=== PATIENT | female | born 1960 | race Caucasian/White ===

== ENCOUNTER 2021-02-14 15:37 | Outpatient (RCR) | payer OTHER, SELFPAY ==
[2021-02-14] MEDS: COVID-19 VACC, MRNA(PFIZER)/PF 30 MCG/0.3 ML SYRINGE IM (08:13)
[2021-03-07] MEDS: COVID-19 VACC, MRNA(PFIZER)/PF 30 MCG/0.3 ML SYRINGE IM (06:49)
== END 2021-02-14 23:59 ==
LOC: IMMUN 15:37
PROVIDERS: PCP Nurse Practitioner Family; Visit Provider Family Medicine
DX: Z23 Encounter for immunization (principal)
CPT/HCPCS: 0001A; 0002A; 91300

== ENCOUNTER → 2021-07-18 06:18 | Outpatient (CLI) | payer OTHER, SELFPAY ==
--- NOTE | 2021-07-18 06:39 | MRI_ITS ---
ACR Level 3 findings have been noted. An addendum which confirms receipt of the report will follow. STUDY: MRI RIGHT SHOULDER REASON FOR EXAM: Anterior right shoulder pain for 3 months. TECHNIQUE: Standardized fat and water weighted pulse sequences were obtained in all 3 orthogonal planes. COMPARISON: None. FINDINGS: There is supraspinatus tendinosis and a small linear intermediate grade partial-thickness tear of the bursal surface of the distal supraspinatus tendon at the greater tuberosity insertion (T2 coronal image 10). There is a small full-thickness tear of the anterior infraspinatus tendon near the musculotendinous junction (T2 coronal images 12, 13; T2 sagittal image 15) measuring 0.7 x 0.5 cm (length x width). Normal subscapularis tendon. Normal teres minor tendon. Normal supraspinatus muscle. Normal infraspinatus muscle. Normal subscapularis muscle. Normal teres minor muscle. Normal glenohumeral articulation. There is a chondroid series tumor in the proximal humeral diametaphysis measuring approximately 4 cm in length (T2 sagittal images 13-18) without adjacent bone edema or cortical breakthrough although there is endosteal scalloping (T2 axial images 14-16). Normal biceps labral complex. Normal intracapsular long biceps tendon. Normal labrum. Normal capsulo- ligamentous complex. There is acromioclavicular arthrosis with mild hypertrophic changes effacing the subacromial fat (T2 sagittal image 12). There is a Type II morphology (curved), with a neutral orientation. There is a trace of subacromial-subdeltoid bursal fluid. Normal visualized coracohumeral and coracoacromial ligaments. Normal deltoid muscle. Normal trapezius muscle. MRI/Upper Ext Joint Only(Routine) IMPRESSION: Small full-thickness tear of the infraspinatus tendon. Small partial-thickness tear and tendinosis of the supraspinatus tendon. Acromioclavicular arthrosis. 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 Electronically Signed: Vick Roy MD at 8:31 EDT Tel , Service support ,
== END ==
PROVIDERS: PCP Nurse Practitioner Family
DX: S46.001A Unspecified injury of muscle(s) and tendon(s) of the rotator cuff of right shoulder, initial encounter (principal)
CPT/HCPCS: 73221

== ENCOUNTER → 2023-10-04 | Outpatient (CLI) | payer OTHER, SELFPAY ==
--- NOTE | 2023-10-04 10:00 | RAD_ITS ---
STUDY: X-RAY - ESOPHAGUS (BARIUM SWALLOW) WITH FLUOROSCOPY REASON FOR EXAM: Female, 63 years old. Dysphagia. TECHNIQUE: 16 view(s) of the esophagus were obtained following swallowing of barium. FLUOROSCOPY TIME (if supplied): (33 seconds) minutes/seconds COMPARISON: None. FINDINGS: There is no demonstrated esophageal foreign body. There is no demonstrated stricture or mucosal abnormality. Small hiatal hernia without gastroesophageal reflux. Weblike stenosis at the gastroesophageal junction with trapping of the 12 mm tablet of barium at that site. Endoscopic correlation recommended. Normal visualized aortic arch and descending thoracic aorta. Normal visualized pulmonary parenchyma. Normal visualized osseous structures of the thorax. RAD/Esophagus Dual Contrast IMPRESSION: Small hiatal hernia without ESOPHAGEAL reflux. Weblike stenosis at the gastroesophageal junction with trapping of the 12 mm tablet of barium at that site. Endoscopic correlation recommended. Electronically Signed: Checo Hargrove MD at 14:48 EST ,
== END | disposition home or self-care (01) ==
LOC: RAD 09:44
PROVIDERS: PCP Nurse Practitioner; Referring Provider Otolaryngology; Visit Provider Otolaryngology
DX: R13.13 Dysphagia, pharyngeal phase (principal)
CPT/HCPCS: 74220; 74221

== ENCOUNTER 2025-03-26 08:05 | Day surgery (SDC) | payer OTHER, SELFPAY ==
[2025-03-26] VITALS (10 sets, daily range): BP systolic 84–159; BP diastolic 55–121; PULSE 66–82; RESP 14–16; TEMP 35.8–36.6; O2SAT 94–100; BMI 34.8
[2025-03-26] MEDS: Lactated Ringers 1,000 ML 15 ML IV (08:45)
--- NOTE | 2025-03-26 08:47 | PRE.ANES_ITS ---
ASA Classification* ASA Classification ASA Classification: 2 Assessment & Plan Anesthesia* Anesthesia Assessment Anesthesia Assessment: Discussed sedation and/or anesthesia options, risks, benefits, and alternatives with patient/parents/legal guardian/POA. Questions invited. The patient/parents/legal guardian/POA seems to understand and agrees to proceed with anesthesia plan. Reviewed the physical assessment, medical history, allergy history and patient home medications list prior to surgery/procedure/anesthetic and documented any changes. Performed airway and anesthesia risk assessments. 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 When Was Last Pacemaker Check QUESTION #4 FULL TEXT: You/Your Family Experience fever (hyperthermia) with Anesthesia Last Oral Intake Last Oral intake: Last Oral Intake NPO since 04:00 03/26/25 08:28 Meds taken in AM with sips of No 03/26/25 08:28 water? Meds patient instructed to take am of surgery PONV PONV - licensing court magistrate: PONV - licensing court magistrate Female Yes 03/21/25 15:58 HX of Motion Sickness No 03/21/25 15:58 HX of N/V After Surgery No 03/21/25 15:58 Non-Smoker Yes 03/21/25 15:58 Duration of Surgery greater No 03/21/25 15:58 than 60 minutes Number of Risk Factors 2 03/21/25 15:58 PONV Score Moderate Risk 03/21/25 15:58 Height & Weight Height & Weight: Anesthesia: Height & Weight Height 5 ft 3 in 03/26/25 08:28 Weight: 89.2 kg 03/26/25 08:28 Body Mass Index (BMI) 34.8 03/26/25 08:28 Respiratory Assessment Respiratory Assessment - licensing court magistrate: Respiratory Tract Infection Hx - licensing court magistrate Hx Respiratory Tract Infection No 03/21/25 15:58 STOP Sleep Apnea STOP Sleep Apnea - licensing court magistrate: STOP Sleep Apnea - licensing court magistrate Hx Hypertension No 03/21/25 15:58 Hx Sleep Apnea No 03/21/25 15:58 CPAP BIPAP Do you snore loudly (louder No 03/21/25 15:58 than talking or can be heard Do you often feel tired/ No 03/21/25 15:58 fatigued/ sleepy during daytime? Has anyone observed you stop No 03/21/25 15:58 breathing during sleep? STOP Results Negative 03/21/25 15:58 QUESTION #5 FULL TEXT : Do you snore loudly (louder than talking or can be heard through closed doors)? 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 Specify any problems Hx of Preganancy in last 3 No 03/21/25 15:58 Months Nurse Filling Out Transfusion VLEHMAN 03/21/25 15:58 & Questions: Date: 03/21/25 03/21/25 15:58 Time: 16:05 03/21/25 15:58 Patient unable to answer at this time (ie. confused, unrespo /Reproduction History /Reproductive History - licensing court magistrate: /Reproductive Hx- licensing court magistrate Hx Now No 03/21/25 15:58 Gestational Age (in weeks): EDC: Hx Hx Para Hx Section SAB Active Medications Active Medications: Current Medications Generic Name Dose Route Start Last Admin Trade Name Freq PRN Reason Stop Dose Admin Lactated Ringer's 1,000 mls @ 15 mls/hr 03/26/25 08:45 03/26/25 08:45 IV 15 mls/hr .Q48H PERLA Administration PFSH Medical History Wears glasses Post-menopausal Difficulty swallowing History of ulceration Gastric reflux Non-smoker History of edema GERD (gastroesophageal reflux disease) Headache Home Medications ?Medication ?Instructions ?Recorded ?Last Taken ?Type omeprazole 40 mg capsule,delayed 40 mg PO BID #180 cap s 01/11/25 Unknown Rx release peg 3350-sod sulf,kkeee-hwh-lek See Rx Instructions PO .COMPLEX #2 01/11/25 Unknown Rx 178.7-7.3-0.5-1.12-0.9 gram oral mL soln (Suflave) Allergy/AdvReac Type Severity Reaction Status Date / Time sulfur dioxide Allergy Mild PT UNSURE Verified 01/11/25 15:43 OF REACTION Surgical History History of Social History Smoking Status: Never smoker alcohol intake: never substance use type: does not use Review of Systems (Anesthesia) ROS Narrative System reviewed and no additional complaints, except as documented.
--- NOTE | 2025-03-26 09:33 | PCM.HP.STD ---
HPI - General General Date of Admission: 03/26/25 Date of Service: 03/26/25 Chief Complaint: dysphagia and screening colonoscopy HPI Narrative JOSEPH ANDREWS, is a 64 F who presents for evaluation of dysphagia and a screening colonoscopy. Esophagram 10/04/2023 Small hiatal hernia without ESOPHAGEAL reflux. Weblike stenosis at the gastroesophageal junction with trapping of the 12 mm tablet of barium at that site. Endoscopic correlation recommended. Ulcers in and - denies any prior endoscopy -she is on Prilosec - reports she cannot swallow cold beverages - she has trouble swallowing breaded foods and arabic fries when they are not hot - denies any nausea - emesis to dislodge food bolus - Omeprazole 40mg once daily has helped - she started this post Esophagram 09/2023 - denies any h/o EGD - denies any h/o colon - denies any change in bowel habits - denies any bleeding - caffeine intake limited - EtOH denies - non-smoker - denies any NSAIDS [facility] Medical History (Updated 03/26/25 @ 09:[address] Dante Morrison, DO) Wears glasses Post-menopausal Difficulty swallowing History of ulceration Gastric reflux Non-smoker History of edema GERD (gastroesophageal reflux disease) Headache Home Medications ?Medication ?Instructions ?Recorded ?Last Taken ?Type omeprazole 40 mg capsule,delayed 40 mg PO BID #180 caps 01/11/25 Unknown Rx release peg 3350-sod sulf,uijty-bml-kfl See Rx Instructions PO .COMPLEX #2 01/11/25 Unknown Rx 178.7-7.3-0.5-1.12-0.9 gram oral mL soln (Suflave) Allergy/AdvReac Type Severity Reaction Status Date / Time sulfur dioxide Allergy Mild PT UNSURE Verified 01/11/25 15:43 OF REACTION Surgical History History of Social History Smoking Status: Never smoker alcohol intake: never substance use type: does not use ROS Constitutional Constitutional: Denies fatigue, fever(s), poor appetite, weight gain or weight loss Gastrointestinal Gastrointestinal: Denies belching, bloating, change in bowel habits, change in stool character, chewing difficulty, coffee ground emesis, constipation, cramping, diarrhea, dyspepsia, dysphagia, early satiety, excessive flatus, fecal incontinence, heartburn, hematemesis, hematochezia, hemorrhoids, loose stools, melena, nausea, odynophagia, rectal bleeding, tenesmus, vomiting or weight changes Vital Signs Vital Signs Vital Signs: 03/26/25 08:28 03/26/25 08:28 03/26/25 08:47 Temperature 98 F 98 F Temperature Source Temporal Pulse Rate 82 82 Respiratory Rate 16 16 Respiratory Pattern Normal Blood Pressure 133/85 H 133/85 H Blood Pressure Mean 101 Blood Pressure Source Monitor Blood Pressure Position Sitting Blood Pressure Location Right Arm Pulse Ox 100 100 Oxygen Delivery Method Room Air Weight Weight: 196 lb 10.437 oz Body Mass Index (BMI) 34.8 Physical Exam Const alert, oriented x3, no apparent distress and healthy appearing General Appearance: cooperative GI normal to inspection, nondistended, normoactive bowel sounds, soft to palpation, non-tender and non-distended Percussion: normal to percussion Rectal Exam: deferred Assessment & Plan Assessment/Plan (1) Screening for colon cancer: (2) GERD (gastroesophageal reflux disease): (3) Difficulty swallowing: PLAN: Assessment and Plan Assessment and Plan (1) Dysphagia: Qualifiers: Dysphagia type: esophageal phase Qualified Code(s): R13.19 - Other dysphagia (2) Screening for colon cancer: Status: Acute Medications: New omeprazole 40 mg PO BID 180 caps 0RF peg 3350-sod sulf,islb-iyt-ral 178.7-7.3-0.5 gram (Suflave) take as directed for split dose bowel prep 2 mL 0RF Discontinued omeprazole Discontinued Reason: Order Changed 40 mg PO QDAY Plan 64y/o female presents for consultation with complaints of dysphagia. She reports sensation of dysphagia is high in the esophagus. With episodes of obstruction she reports standing up, arching her back/neck and walking to dislodge food. She does vomit to dislodge. Esophagram performed September 2023 revealed a weblike stenosis at the GEJ with trapping of the tablet. She started Omeprazole 40mg once daily post Esophagram and has noted some improvement. She remains very cautious with PO intake and avoids cold liquids. I have increased PPI to BID and scheduled her for an EGD as well as a screening colonoscopy. Patient Instructions: Increase PPI to BID Plan Details Follow Up:
--- NOTE | 2025-03-26 10:18 | PCM.POST.ANE ---
Anesthesia: Postop Eval I Current Vital Signs Temperature: 97.1 F Pulse Rate: 79 Blood Pressure: 85/58 Respiratory Rate: 16 Pulse Ox: 95 Oxygen Delivery Method: Room Air Assessment Airway patent: Yes Spontaneous unlabored respirations: Yes Mental status: Asleep nausea: No Vomiting: No Anesthesia Complication: No Fluid Hydration Crystalloid volume administer (ml): 500 Total IV fluid infused: 500 Progress Note Anesthesia document: Postop Eval 1 completed: Yes
--- NOTE | 2025-03-26 10:19 | OP.EGD_ITS ---
Patient Name: Priyanka Whaley Procedure Date: 03/26/2025 9:39 AM Date of : 1960 Age: 64 Procedure: Upper GI endoscopy Indications: Dysphagia, Heartburn, Suspected esophageal reflux Providers: Dante Morrison DO Referring MD: Rosina Gamble Medicines: Monitored Anesthesia Care Patient Profile: This is a 64 year old female. Refer to note in patient chart for documentation of history and physical. Patient has symptoms of chronic dysphagia and chronic heartburn. Complications: No immediate complications. Procedure: Pre-Anesthesia Assessment: - Prior to the procedure, a History and Physical was performed, and patient medications and allergies were reviewed. The patient is competent. The risks and benefits of the procedure and the sedation options and risks were discussed with the patient. All questions were answered and informed consent was obtained. Patient identification and proposed procedure were verified by the physician in the pre-procedure area. Mental Status Examination: alert and oriented. Airway Examination: normal oropharyngeal airway and neck mobility. Respiratory Examination: clear to auscultation. CV Examination: normal. Prophylactic Antibiotics: The patient does not require prophylactic antibiotics. Prior Anticoagulants: The patient has taken no anticoagulant or antiplatelet agents except for NSAID medication. ASA Grade Assessment: II - A patient with mild systemic disease. After reviewing the risks and benefits, the patient was deemed in satisfactory condition to undergo the procedure. The anesthesia plan was to use monitored anesthesia care (MAC). Immediately prior to administration of medications, the patient was re-assessed for adequacy to receive sedatives. The heart rate, respiratory rate, oxygen saturations, blood pressure, adequacy of pulmonary ventilation, and response to care were monitored throughout the procedure. The physical status of the patient was re-assessed after the procedure. After obtaining informed consent, the endoscope was passed under direct vision. Throughout the procedure, the patient's blood pressure, pulse, and oxygen saturations were monitored continuously. The pediatric colonoscope was introduced through the mouth, and advanced to the second part of duodenum. The upper GI endoscopy was accomplished without difficulty. The patient tolerated the procedure well. Scope In: 9:49:40 AM Scope Out: 9:55:40 AM Total Procedure Duration Time 0 hours 6 minutes 0 seconds Findings: There were esophageal mucosal changes suggestive of long-segment Vides's esophagus present in the lower third of the esophagus. The maximum longitudinal extent of these mucosal changes was 4 cm in length. Mucosa was biopsied with a cold forceps for histology in a targeted manner at intervals of 1 cm in the lower third of the esophagus. One specimen bottle was sent to pathology. A medium-sized hiatal hernia was present. No other significant abnormalities were identified in a careful examination of the stomach. No gross lesions were noted in the first portion of the duodenum. A severe Schatzki ring was found at the gastroesophageal junction. A guidewire was placed and the scope was withdrawn. Dilation was performed with a Savary dilator with no resistance at 54 Fr. The dilation site was examined and showed. 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 Biopsied. - Medium-sized hiatal hernia. - No gross lesions in the first portion of the duodenum. Recommendation: - Await pathology results. - Repeat upper endoscopy for surveillance. - Use Protonix (pantoprazole) 40 mg PO BID for 4 months. - Continue present medications. Procedure Code(s): --- Professional --- 94299, Esophagogastroduodenoscopy, flexible, transoral; with insertion of guide wire followed by passage of dilator(s) through esophagus over guide wire 57917, 59,51, Esophagogastroduodenoscopy, flexible, transoral; with biopsy, single or multiple CPT copyright 2021 [employer]. All rights reserved. The codes documented in this report are preliminary and upon message and delivery service pricer review may be revised to meet current compliance requirements. Dante Morrison DO 03/26/2025 10:18:59 AM This report has been signed electronically. Number of Addenda: 0 Note Initiated On: 03/26/2025 9:39 AM
--- NOTE | 2025-03-26 10:19 | OP.CCLET_ITS ---
03/26/2025 Rosina Gamble Re : Upper GI endoscopy procedure for Priyanka Whaley Dear Mavis This procedure was performed on Wednesday, March 26, 2025. 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 Biopsied. - Medium-sized hiatal hernia. - No gross lesions in the first portion of the duodenum. Recommendations : - Await pathology results. - Repeat upper endoscopy for surveillance. - Use Protonix (pantoprazole) 40 mg PO BID for 4 months. - Continue present medications. My findings are described in the full procedure note, which is enclosed. If I can be of further assistance, please feel free to contact me at . Sincerely, Dante Morrison, 03/26/2025 10:18:59 AM This report has been signed electronically.
--- NOTE | 2025-03-26 10:22 | OP.CCLET_ITS ---
03/26/2025 Rosina Gamble Re : Colonoscopy procedure for Priyanka Whaley Dear Mavis This procedure was performed on Wednesday, March 26, 2025. My impressions and recommendations are as follows: Impressions : - Two 6 mm polyps in the ascending colon, removed with a cold snare. Resected and retrieved. - One 9 mm polyp at the splenic flexure, removed with a hot snare. Resected and retrieved. - Diverticulosis in the recto-sigmoid colon, in the sigmoid colon, at the splenic flexure and in the ascending colon. Recommendations : - Discharge patient to home. - Resume previous diet. - Continue present medications. - Await pathology results. - Repeat colonoscopy in 5 years for surveillance. My findings are described in the full procedure note, which is enclosed. If I can be of further assistance, please feel free to contact me at . Sincerely, Dante Morrison, 03/26/2025 10:22:13 AM This report has been signed electronically.
--- NOTE | 2025-03-26 10:22 | OP.COLON_ITS ---
Patient Name: Priyanka Whaley Procedure Date: 03/26/2025 9:55 AM Date of : 1960 Age: 64 Procedure: Colonoscopy Indications: Screening for colorectal malignant neoplasm Providers: Dante Morrison DO Referring MD: Rosina Gamble Medicines: Monitored Anesthesia Care Patient Profile: This is a 64 year old female. Refer to note in patient chart for documentation of history and physical. Patient has symptoms of chronic dysphagia and chronic heartburn. Last Colonoscopy: none. The patient's first colonoscopy is today. Complications: No immediate complications. Procedure: Pre-Anesthesia Assessment: - Prior to the procedure, a History and Physical was performed, and patient medications and allergies were reviewed. The patient is competent. The risks and benefits of the procedure and the sedation options and risks were discussed with the patient. All questions were answered and informed consent was obtained. Patient identification and proposed procedure were verified by the physician in the pre-procedure area. Mental Status Examination: alert and oriented. Airway Examination: normal oropharyngeal airway and neck mobility. Respiratory Examination: clear to auscultation. CV Examination: normal. Prophylactic Antibiotics: The patient does not require prophylactic antibiotics. Prior Anticoagulants: The patient has taken no anticoagulant or antiplatelet agents except for NSAID medication. ASA Grade Assessment: II - A patient with mild systemic disease. After reviewing the risks and benefits, the patient was deemed in satisfactory condition to undergo the procedure. The anesthesia plan was to use monitored anesthesia care (MAC). Immediately prior to administration of medications, the patient was re-assessed for adequacy to receive sedatives. The heart rate, respiratory rate, oxygen saturations, blood pressure, adequacy of pulmonary ventilation, and response to care were monitored throughout the procedure. The physical status of the patient was re-assessed after the procedure. After I obtained informed consent, the scope was passed under direct vision. Throughout the procedure, the patient's blood pressure, pulse, and oxygen saturations were monitored continuously. The pediatric colonoscope was introduced through the anus and advanced to the cecum, identified by appendiceal orifice and ileocecal valve. The colonoscopy was performed without difficulty. The patient tolerated the procedure well. The quality of the bowel preparation was adequate. The ileocecal valve, appendiceal orifice, and rectum were photographed. Scope In: 9:56:57 AM Scope Withdrawal Time 0 hours 8 minutes 1 second Scope Out: 10:09:20 AM Total Procedure Duration Time 0 hours 12 minutes 23 seconds Findings: The perianal and digital rectal examinations were normal. Two sessile polyps were found in the ascending colon. The polyps were 6 mm in size. These polyps were removed with a cold snare. Resection and retrieval were complete. Verification of patient identification for the specimen was done. Estimated blood loss was minimal. A 9 mm polyp was found in the splenic flexure. The polyp was sessile. The polyp was removed with a hot snare. Resection and retrieval were complete. Multiple small-mouthed diverticula were found in the recto-sigmoid colon, sigmoid colon, splenic flexure and ascending colon. Impression: - Two 6 mm polyps in the ascending colon, removed with a cold snare. Resected and retrieved. - One 9 mm polyp at the splenic flexure, removed with a hot snare. Resected and retrieved. - Diverticulosis in the recto-sigmoid colon, in the sigmoid colon, at the splenic flexure and in the ascending colon. Recommendation: - Discharge patient to home. - Resume previous diet. - Continue present medications. - Await pathology results. - Repeat colonoscopy in 5 years for surveillance. Procedure Code(s): --- Professional --- 29004, Colonoscopy, flexible; with removal of tumor(s), polyp(s), or other lesion(s) by snare technique CPT copyright 2021 [employer]. All rights reserved. The codes documented in this report are preliminary and upon passenger tire builder review may be revised to meet current compliance requirements. Dante Morrison DO 03/26/2025 10:22:13 AM This report has been signed electronically. Number of Addenda: 0 Note Initiated On: 03/26/2025 9:55 AM
--- NOTE | 2025-03-26 12:11 | PCM.POSTANE2 ---
Anesthesia Postop Eval I Sum Postop Eval Completion status Anesthesia document: Postop Eval 1 completed: Yes Anesthesia Postop Eval I Summary Anesthesia Postop Eval I Summary: Anesthesia Postop Eval I: Assessment Summary Airway patent Yes 03/26/25 10:19 [email or web address] Spontaneous unlabored Yes 03/26/25 10:19 [email or web address] respirations Mental status Asleep 03/26/25 10:19 [email or web address] nausea No 03/26/25 10:19 [email or web address] Vomiting No 03/26/25 10:19 [email or web address] Anesthesia Postop Eval I: Fluid Summary Crystalloid volume administer 500 03/26/25 10:19 [email or web address] (ml) Colloids volume administered ( ml) Blood Product volume administered (ml) Total IV fluid infused 500 03/26/25 10:19 [email or web address] Anesthesia Postop Eval I: Summary Notes Anesthesia Complication No 03/26/25 10:19 [email or web address] Anesthesia Complication Comment: Post-operative progress note Anesthesia: Postop Eval II Evaluation Mental status: Awake Pain Level: 0 nausea: No Vomiting: No
--- NOTE | 2025-03-26 12:55 | EGD_PTH ---
PATIENT: JOSEPH ANDREWS LOC: EN U#:[id number] AGE/SX: 64/F ROOM: RE03/26/[address]: Dr. Dante Morrison DO : 1960 BED: DIS: 03/26/2025 SPEC #: [id number] RECD: 03/26/25 13:56 STATUS: MATILDA ELIJAH #: [id number] EVANGELINA: 03/26/25 12:[address]: Dante Morrison DEPT: SURGICAL PATHOLOGY RECD BY: Matt Freed ENTERED: 03/26/25 13:56 SP TYPE: EGD BIOPSY OT DR: Rosina uRbi, REGULATOR INSPECTOR-C Tissues: A - Esophagus, NOS B - Ascending colon C - COLON BIOPSY Procedures: Special Stain Group I Surgery Specimen Level IV GMS Stain (control) HEADER OPERATION: Colonoscopy with polyp biopsy, EGD, polypectomy PRE-OP DIAGNOSIS: Screening for colon cancer, GERD, difficulty swallowing TISSUE SUBMITTED: A- Distal esophagus biopsy, B- Ascending colon polyp biopsy, C- Splenic flexure polyp MICROSCOPIC DIAGNOSIS A. Esophagus, distal, biopsy: Squamous mucosa with reactive changes and mild acute inflammation; up to 5 eosinophils per high power field - see note #1. Columnar mucosa with goblet cell metaplasia - see note #2. Note #1: A PASD stain highlights rare extra-cellular fungal organisms, favoring contamination. Recommend clinical/endoscopic correlation. Note #2: The diagnosis depends on the location of the biopsy and the extent of the mucosal irregularity. If the biopsy originates from the tubular esophagus and the mucosal irregularity extends at least 1 cm above the top of the gastric folds, this represents Valles mucosa. If the biopsy originates from the gastric cardia and/or the mucosal irregularity is less than 1 cm in extent, this represents intestinal metaplasia. B. Ascending colon, polyp, biopsy: Tubular adenoma. C. Colon, splenic flexure, polyp, biopsy: Tubulovillous adenoma, multiple fragments. MICROSCOPIC DESCRIPTION Slides are reviewed. All matched controls reacted appropriately. These tests were developed and their performance characteristics determined by [facility]. They may not have been cleared or approved by the [place] Food and Drug Administration. The FDA has determined that such clearance or approval is not necessary.? The above immunohistochemical/dualISH?markers are ordered and reviewed by the Pathologist. GROSS DESCRIPTION A. Received in formalin in a container labeled with the patient's name, date of , and distal esophagus are multiple lee-pink fragments of mucosal tissue measuring 1.5 x 0.5 x 0.2 cm in aggregate. Submitted in toto in A1. B. Received in formalin in a container labeled with the patient's name, date of , and ascending colon polyp biopsy are 2 lee-pink fragments of mucosal tissue measuring 0.2 x 0.2 x 0.2 cm and 0.5 x 0.3 x 0.3 cm. Submitted in toto in B1. C. Received in formalin in a container labeled with the patient's name, date of , and splenic flexure polyp are multiple lee-pink fragments of mucosal tissue measuring 0.8 x 0.8 x 0.2 cm in aggregate. Submitted in toto in C1. [facility] 03-26-2025 CPT:01181q6,91013 ADDENDUM ADDENDUM ADDENDUM ADDENDUM ADDENDUM ADDENDUM ADDENDUM ADDENDUM ADDENDUM ADDENDUM 05/02/2025 16:13 ADDENDUM 05/02/2025 16:13 ADDENDUM 05/02/2025 16:13 ADDENDUM 05/02/2025 16:13 ADDENDUM 05/02/2025 16:13 CASTLE BIOSCIENCES - VALLES'S ESOPHAGUS / TISSUE CYPHER REPORT RISK CLASS : LOW RISK SCORE : 1.4 5-YEAR PROBABILITY OF PROGRESSION : 0.60% Please see complete report in e-chart or EMR
== END 2025-03-26 11:23 | disposition home or self-care (01) ==
LOC: EN 08:07 → AC 08:09
PROVIDERS: PCP Nurse Practitioner; Referring Provider Nurse Practitioner; Visit Provider Internal Medicine Gastroenterology
PROC: 0DJD8ZZ Inspection of Lower Intestinal Tract, Via Natural or Artificial Opening Endoscopic (ICD-10-PCS; CPT 45378; principal; 2025-03-26 09:10)
DX: Z12.11 Encounter for screening for malignant neoplasm of colon (principal); K63.5 Polyp of colon; K21.00 Gastro-esophageal reflux disease with esophagitis, without bleeding; K57.30 Diverticulosis of large intestine without perforation or abscess without bleeding; K44.9 Diaphragmatic hernia without obstruction or gangrene; K22.2 Esophageal obstruction; D12.2 Benign neoplasm of ascending colon; D12.3 Benign neoplasm of transverse colon
CPT/HCPCS: 45385; 43239; 43248; 88305; 88312; C1769; J2405